=== PATIENT | male | born 1955 | race Caucasian/White ===

== ENCOUNTER 2017-11-09 09:09 | Inpatient (IN) | payer OTHER ==
[2017-11-09 10:33] VITALS: BMI 18.3
--- NOTE | 2017-11-09 11:41 | HP ---
CIWA Score - CIWA Score Nausea/Vomitin Muscle Tremors: 4-Moderate,w/Arms Extend Anxiety: 4-Mod. Anxious/Guarded Agitation: 1-Slight > Activity Paroxysmal Sweats: 1-Minimal Palms Moist Orientation: 1-Uncertain about Date Tacttile Disturbances: 1-Very Mild Itch/Numbness Auditory Disturbances: 1-Very Mild Visual Disturbances: 1-Very Mild Sensitivity Headache: 2-Mild CIWA-Ar Total Score: 18 Admission ROS BHS - HPI Chief Complaint: I need help, I shake too much, I need help to stop drinking Allergies/Adverse Reactions: Allergies Allergy/AdvReac Type Severity Reaction Status Date / Time No Known Allergies Allergy Verified 11/09/17 11:14 History of Present Illness: 62 yo gentleman here for detox from alcohol - states he went to [facility] but was sent here. Denies seizures, does have black outs. Has been in detox previously but does not remember when. Exam Limitations: Clinical Condition - Ebola screening Have you traveled outside of the country in the last 21 days: No Have you had contact with anyone from an Ebola affected area: No Have you been sick,other than usual withdrawal symptoms: No - Review of Systems Constitutional: Chills, Loss of Appetite, Malaise, Changes in sleep, Weakness, Unintentional Wgt. Loss EENT: reports: Blurred Vision Respiratory: reports: No Symptoms reported Cardiac: reports: No Symptoms Reported GI: reports: Nausea, Poor Appetite, Poor Fluid Intake, Indigestion, Abdominal cramping : reports: Frequency Musculoskeletal: reports: Joint Pain, Muscle Pain Integumentary: reports: Dryness Neuro: reports: Headache, Tremors Hematology: reports: No Symptoms Reported Psychiatric: reports: Judgement Intact, Mood/Affect Appropiate, Anxious Other Systems: Reviewed and Negative Patient History - Patient Medical History Hx Asthma: No Hx Chronic Obstructive Pulmonary Disease (COPD): No Hx Cancer: No Hx Cardiac Disorders: No Hx Congestive Heart Failure: No Hx Hypertension: No Hx Hypercholesterolemia: No Hx Pacemaker: No HX Cerebrovascular Accident: No Hx Seizures: No Hx Diabetes: No Hx Gastrointestinal Disorders: No Hx Liver Disease: No Hx Genitourinary Disorders: No Hx Sexually Transmitted Disorders: No Hx Renal Disease (ESRD): No Hx Thyroid Disease: No Hx Human Immunodeficiency Virus (HIV): No Hx Hepatitis C: No Hx Depression: Yes Hx Suicide Attempt: No Hx Schizophrenia: No - Patient Surgical History Past Surgical History: No Hx Neurologic Surgery: No Hx Cataract Extraction: No Hx Cardiac Surgery: No Hx Lung Surgery: No Hx Breast Surgery: No Hx Breast Biopsy: No Hx Abdominal Surgery: No Hx Appendectomy: No Hx Cholecystectomy: No Hx Genitourinary Surgery: No Hx Section: No Hx Orthopedic Surgery: No Anesthesia Reaction: No - PPD History Previous Implant?: Yes Documented Results: Negative w/o proof Implanted On Prior [facility] Admission?: No PPD to be Administered?: Yes - Reproductive History Patient is a Female of Child Bearing Age (11 -55 yrs old): No (male) - Smoking Cessation Smoking history: Never smoked Hx Chewing Tobacco Use: No Initiated information on smoking cessation: No - Substance & Tx. History Hx Alcohol Use: Yes Hx Substance Use: No Substance Use Type: Alcohol Hx Substance Use Treatment: Yes (detox, rehab) - Substances Abused Alcohol Route: Oral Frequency: Daily Amount used: 2 (6 packs 40 oz budweiser beer) Age of first use: 22 Date of Last Use: 11/09/17 Family Disease History - Family Disease History Family Disease History: Diabetes: Son (three - two in [place] - no contact), Other: Father (no contact), Mother ( - old age), Brother (4 in [place] - no contact), Sister (two - in [place] - 'they are ok'), Son Admission Physical Exam [facility] - Vital Signs Vital Signs: Vital Signs - 24 hr 11/09/17 10:32 Temperature 98.6 F Pulse Rate 77 Respiratory 18 Rate Blood Pressure 115/74 - Physical General Appearance: Yes: Nourished, Appropriately Dressed, Moderate Distress, Tremorous, Anxious HEENTM: Yes: Hearing grossly Normal, Normocephalic, Normal Voice, Pharynx Normal , Other (tongue coated) Respiratory: Yes: Normal Breath Sounds, No Respiratory Distress Neck: Yes: No masses,lesions,Nodules, Supple Breast: Yes: Breast Exam Deferred Cardiology: Yes: Regular Rhythm, Regular Rate Abdominal: Yes: Flat Genitourinary: Yes: Frequency Back: Yes: Decreased Range of Motion Musculoskeletal: Yes: full range of Motion, Gait Steady, Joint Stiffness Extremities: Yes: Normal Inspection, Non-Tender Neurological: Yes: Alert, Motor Strength 5/5, Normal Mood/Affect, Normal Response Integumentary: Yes: Normal Color, Dry, Warm Lymphatic: Yes: Within Normal Limits - Diagnostic (1) Alcohol dependence with uncomplicated withdrawal Current Visit: Yes Status: Acute (2) Weight decreased Current Visit: Yes Status: Acute (3) Dehydration Current Visit: Yes Status: Acute Cleared for Admission [facility] - Detox or Rehab [facility] Level of Care: Medically Managed Detox Regimen/Protocol: Librium [facility] Breath Alcohol Content Breath Alcohol Content: 0.232 Urine Drug Screen - Results Drug Screen Negative: No Urine Drug Screen Results: BZO-Benzodiazepines
[2017-11-09] MEDS ORDERED: P-EPHED 60MG/TRIPROLIDI 2.5MG TABLET PO PRN (11:44)
[2017-11-09] MEDS ORDERED: LOPERAMIDE HCL 2 MG CAPSULE PO PRN (11:44)
[2017-11-09] MEDS ORDERED: ACETAMINOPHEN 325 MG TABLET (FP) PO PRN (11:44)
[2017-11-09] MEDS ORDERED: MAG HYDROX/AL HYDROX/SIMETH 30 ML UNIT-DOSE CUP PO PRN (11:44)
[2017-11-09] MEDS ORDERED: guaiFENesin/D-METHORPHAN HB 10 ML UNIT-DOSE CUPS PO PRN (11:44)
[2017-11-09] MEDS ORDERED: MENTHOL/PHENOL 1 EACH UD MM PRN (11:44)
[2017-11-09] MEDS ORDERED: MAGNESIUM HYDROX 2400MG/30ML ORAL SUSPENSION 30 ML CUP PO PRN (11:44)
[2017-11-09] MEDS ORDERED: MAGNESIUM CITRATE 300 ML BOTTLE PO PRN (11:44)
[2017-11-09] MEDS ORDERED: IBUPROFEN 400 MG TABLET (FP) PO PRN (11:44)
[2017-11-09] MEDS ORDERED: chlordiazePOXIDE HCL 25 MG CAPSULE PO ONE (12:30)
[2017-11-09] MEDS: chlordiazePOXIDE HCL 25 MG CAPSULE PO SCH ×2 (17:51→22:25)
[2017-11-09] MEDS: chlordiazePOXIDE HCL 25 MG CAPSULE PO PRN (21:20)
[2017-11-09] MEDS ORDERED: MELATONIN 5 MG TABLETS PO PRN (22:00)
[2017-11-09] MEDS: THIAMINE HCL 100 MG TABLET (FP) PO SCH (22:25)
[2017-11-09 23:06] LABS: URINE APPEARANCE CLEAR; URINE BILIRUBIN NEGATIVE (<2.0 mg/dL); URINE COLOR AMBER; URINE GLUCOSE (UA) NEGATIVE (NEGATIVE); URINE KETONE TRACE (NEGATIVE); URINE LEUK ESTERASE NEGATIVE (NEGATIVE); URINE NITRITE NEGATIVE (NEGATIVE); URINE UROBILINOGEN 4.0 E.U/dl mg/dL (0.2-1.0)
[2017-11-09 23:08] LABS: URINE PROTEIN 1+ (NEGATIVE)
[2017-11-09 23:10] LABS: EPI CELLS RARE /HPF (FEW); URINE HYALINE CAST 3 /lpf; URINE MUCUS RARE
[2017-11-10] MEDS: chlordiazePOXIDE HCL 25 MG CAPSULE PO SCH ×4 (06:00→22:00)
--- NOTE | 2017-11-10 06:57 | CONSULT ---
[facility] Psychiatric Consult - Data Date of interview: 11/10/17 Admission source: [facility] [place] Identifying data: Mr Koch is a 62 years old single male, unemployed, homeless seeking detox treatment for alcohol Substance Abuse History: Reports history of alcohol use. Refer to addiction counselor's summary for further information Medical History: Unremarkable Psychiatric History: Denies history of previous psychiatric treatment. However, reorts feeling anxious Mental Status Exam - Mental Status Exam Alert and Oriented to: Time, Place, Person Cognitive Function: Fair Patient Appearance: Well Groomed Mood: Anxious Affect: Appropriate Patient Behavior: Cooperative Speech Pattern: Clear Voice Loudness: Normal Thought Process: Intact Hallucinations: Denies Suicidal Ideation: Denies Homicidal Ideation: Denies Insight/Judgement: Fair Sleep: Fair Appetite: Good Muscle strength/Tone: Normal Gait/Station: Normal Psychiatric Findings - Problem List ([place] 1, 2,3) (1) Alcohol-induced anxiety disorder Current Visit: Yes Status: Acute (2) Alcohol dependence with uncomplicated withdrawal Current Visit: Yes Status: Acute - Initial Treatment Plan Initial Treatment Plan: Continue inpatient detoxification
[2017-11-10 09:35] LABS: HEMOGLOBIN 13.5 GM/dL (11.7-16.9); MCH 31.4 pg (25.7-33.7); MCHC 33.8 g/dl (32.0-35.9); MEAN CELL VOLUME 92.9 fl (80-96); MEAN PLT VOLUME 8.9 fl (7.5-11.1); PLATELET COUNT 80 K/MM3 (134-434); RBC 4.31 M/mm3 (4.00-5.60); RDW 17.6 % (11.9-15.9); WHITE BLOOD COUNT 3.9 K/mm3 (4.0-10.0)
[2017-11-10 09:39] LABS: CHLORIDE 98 mmol/L (98-107); POTASSIUM 3.3 mmol/L (3.5-5.1); SODIUM 135 mmol/L (136-145)
[2017-11-10 09:46] LABS: ALBUMIN 3.2 g/dl (3.4-5.0); ALK PHOS 188 U/L (45-117); ANION GAP 9 (8-16); BILIRUBIN,TOTAL 2.7 mg/dL (0.2-1.0); BLOOD UREA NITROGEN 7 mg/dL (7-18); CALCIUM 8.2 mg/dL (8.5-10.1); CO2 28 mmol/L (21-32); CREATININE 0.8 mg/dL (0.7-1.3); GLUCOSE,RANDOM 113 mg/dL (74-106); SGOT/AST 387 U/L (15-37); SGPT/ALT 222 U/L (12-78); TOT PROT 7.2 g/dl (6.4-8.2)
--- NOTE | 2017-11-10 10:06 | EKG ---
Test Reason : Blood Pressure : / mmHG Vent. Rate : 068 BPM Atrial Rate : 068 BPM P-R Int : 146 ms QRS Dur : 136 ms QT Int : 452 ms P-R-T Axes : 052 034 052 degrees QTc Int : 480 ms NORMAL SINUS RHYTHM RIGHT BUNDLE BRANCH BLOCK ABNORMAL ECG NO PREVIOUS ECGS AVAILABLE Confirmed by CURTIS RODRIGUEZ, SABINA ([id number]) on 11/10/2017 10:06:09 AM Referred By: Pieter Conroy Confirmed By:SABINA ACEVEDO MD
[2017-11-10] MEDS: PRENATAL VITAMINS W/ FOLIC ACID TABLET (FP) PO SCH (10:41)
[2017-11-10] MEDS: chlordiazePOXIDE HCL 25 MG CAPSULE PO PRN ×2 (14:56→20:38)
--- NOTE | 2017-11-10 16:54 | PN ---
S CIWA - CIWA Score Nausea/Vomitin Muscle Tremors: 4-Moderate,w/Arms Extend Anxiety: 4-Mod. Anxious/Guarded Agitation: 3 Paroxysmal Sweats: 3 Orientation: 0-Oriented Tacttile Disturbances: 1-Very Mild Itch/Numbness Auditory Disturbances: 0-None Visual Disturbances: 0-None Headache: 1-Very Mild CIWA-Ar Total Score: 19 BHS Progress Note (SOAP) Subjective: Tremor, interrupted sleep Objective: 11/10/17 16:47 Last Vital Signs Temp Pulse Resp BP Pulse Ox 98.4 F 79 18 120/72 11/10/17 14:54 11/10/17 14:54 11/10/17 14:54 11/10/17 14:54 Laboratory Tests 11/09/17 11/10/17 11/10/17 22:20 07:45 07:45 WBC 3.9 L RBC 4.31 Hgb 13.5 Hct 40.0 MCV 92.9 MCH 31.4 MCHC 33.8 RDW 17.6 H Plt Count 80 L MPV 8.9 Sodium 135 L Potassium 3.3 L Chloride 98 Carbon Dioxide 28 Anion Gap 9 BUN 7 Creatinine 0.8 Creat Clearance w eGFR > 60 Random Glucose 113 H Calcium 8.2 L Total Bilirubin 2.7 H AST 387 H ALT 222 H Alkaline Phosphatase 188 H Total Protein 7.2 Albumin 3.2 L Urine Color Gail Urine Appearance Clear Urine pH 6.0 Ur Specific [place] 1.011 Urine Protein 1+ H Urine Glucose (UA) Negative Urine Ketones Trace H Urine Blood 1+ H Urine Nitrite Negative Urine Bilirubin Negative Urine Urobilinogen 4.0 e.u/dl Ur Leukocyte Esterase Negative Urine WBC (Auto) 2 Urine RBC (Auto) 2 Ur Epithelial Cells Rare Hyaline Casts 3 Urine Mucus Rare RPR Titer 11/10/17 07:45 WBC RBC Hgb Hct MCV MCH MCHC RDW Plt Count MPV Sodium Potassium Chloride Carbon Dioxide Anion Gap BUN Creatinine Creat Clearance w eGFR Random Glucose Calcium Total Bilirubin AST ALT Alkaline Phosphatase Total Protein Albumin Urine Color Urine Appearance Urine pH Ur Specific [place] Urine Protein Urine Glucose (UA) Urine Ketones Urine Blood Urine Nitrite Urine Bilirubin Urine Urobilinogen Ur Leukocyte Esterase Urine WBC (Auto) Urine RBC (Auto) Ur Epithelial Cells Hyaline Casts Urine Mucus RPR Titer Nonreactive Labs reviewed: K 3.3, elevated LFTs and abnormal UA EKG (repeated today) shows: NSR at 84 bpm, RBBB, QTc 491; previous EKG: RBBB, QTc 480 Assessment: 11/10/17 16:50 Withdrawal symptoms Noted with hypokalemia, elevated LFTs and abnormal UA Noted with abnormal EKG Plan: Continue detox Hypokalemia: K Dur 40 Meq PO x 1 dose, repeat serum K level in AM Elevated LFTs: repeat hepatic panel Abnormal UA: encouraged PO water hydration, repeat UA Abnormal EKG: asymptomatic, repeat EKG
[2017-11-10] MEDS ORDERED: POTASSIUM CHLORIDE TABS 20 MEQ TABLET.ER (FP) PO ONE (17:30)
[2017-11-10] MEDS: THIAMINE HCL 100 MG TABLET (FP) PO SCH (21:58)
[2017-11-11] MEDS: chlordiazePOXIDE HCL 25 MG CAPSULE PO SCH ×2 (06:26→10:19)
--- NOTE | 2017-11-11 08:51 | EKG ---
Test Reason : Blood Pressure : / mmHG Vent. Rate : 084 BPM Atrial Rate : 084 BPM P-R Int : 136 ms QRS Dur : 128 ms QT Int : 416 ms P-R-T Axes : 027 040 043 degrees QTc Int : 491 ms NORMAL SINUS RHYTHM RIGHT BUNDLE BRANCH BLOCK ABNORMAL ECG WHEN COMPARED WITH ECG OF 09-NOV-2017 13:58, NO SIGNIFICANT CHANGE WAS FOUND BASELINE ARTIFACT Confirmed by ANGIE RODRIGUEZ, JUVENAL ([id number]) on 11/11/2017 8:51:22 AM Referred By: Pieter Conroy Confirmed By:JUVENAL ADAMS MD
[2017-11-11] MEDS: PRENATAL VITAMINS W/ FOLIC ACID TABLET (FP) PO SCH (10:19)
[2017-11-11 10:39] LABS: ALK PHOS 187 U/L (45-117); ANION GAP 6 (8-16); BILIRUBIN,DIRECT 1.7 mg/dL (0.0-0.2); BILIRUBIN,TOTAL 2.6 mg/dL (0.2-1.0); BLOOD UREA NITROGEN 9 mg/dL (7-18); CALCIUM 8.8 mg/dL (8.5-10.1); CHLORIDE 101 mmol/L (98-107); CO2 29 mmol/L (21-32); CREATININE 0.8 mg/dL (0.7-1.3); GLUCOSE,RANDOM 110 mg/dL (74-106); POTASSIUM 3.9 mmol/L (3.5-5.1); SGOT/AST 266 U/L (15-37); SGPT/ALT 209 U/L (12-78); SODIUM 136 mmol/L (136-145); TOT PROT 7.1 g/dl (6.4-8.2)
[2017-11-11] MEDS: chlordiazePOXIDE HCL 25 MG CAPSULE PO PRN (15:14)
--- NOTE | 2017-11-11 17:38 | PN ---
S CIWA - CIWA Score Nausea/Vomitin Muscle Tremors: 4-Moderate,w/Arms Extend Anxiety: 3 Agitation: 4-Moderately Restless Paroxysmal Sweats: 3 Orientation: 0-Oriented Tacttile Disturbances: 0-None Auditory Disturbances: 0-None Visual Disturbances: 0-None Headache: 0-None Present CIWA-Ar Total Score: 16 BHS Progress Note (SOAP) Subjective: sleep disturbance sweats shakes Objective: 11/11/17 17:36 A & O x3 Ambulating within unit Vital Signs Temperature 97.6 F 11/11/17 14:13 Pulse Rate 71 11/11/17 14:13 Respiratory Rate 18 11/11/17 14:13 Blood Pressure 110/68 11/11/17 14:13 O2 Sat by Pulse Oximetry (%) Assessment: 11/11/17 17:36 withdrawal sx Repeat EKG reviewed - same as past EKG Pt denies any complaints Plan: continue with detox plan increased hydration for abnormal urinalysis
[2017-11-11] MEDS: chlordiazePOXIDE 5 MG CAPSULE PO SCH ×2 (18:34→23:02)
[2017-11-11] MEDS: THIAMINE HCL 100 MG TABLET (FP) PO SCH (23:02)
[2017-11-12] MEDS: chlordiazePOXIDE HCL 25 MG CAPSULE PO PRN (03:01)
[2017-11-12] MEDS: chlordiazePOXIDE 5 MG CAPSULE PO SCH ×2 (05:09→10:14)
[2017-11-12 10:03] LABS: URINE APPEARANCE CLEAR; URINE BILIRUBIN NEGATIVE (<2.0 mg/dL); URINE COLOR AMBER; URINE GLUCOSE (UA) NEGATIVE (NEGATIVE); URINE KETONE NEGATIVE (NEGATIVE); URINE LEUK ESTERASE NEGATIVE (NEGATIVE); URINE NITRITE NEGATIVE (NEGATIVE); URINE PROTEIN NEGATIVE (NEGATIVE); URINE UROBILINOGEN 4.0 E.U/dl mg/dL (0.2-1.0)
[2017-11-12] MEDS: PRENATAL VITAMINS W/ FOLIC ACID TABLET (FP) PO SCH (10:14)
--- NOTE | 2017-11-12 13:29 | EKG ---
Test Reason : Blood Pressure : / mmHG Vent. Rate : 075 BPM Atrial Rate : 075 BPM P-R Int : 132 ms QRS Dur : 122 ms QT Int : 426 ms P-R-T Axes : 041 054 047 degrees QTc Int : 475 ms NORMAL SINUS RHYTHM RIGHT BUNDLE BRANCH BLOCK ABNORMAL ECG WHEN COMPARED WITH ECG OF 10-NOV-2017 10:39, NO SIGNIFICANT CHANGE WAS FOUND Confirmed by MD Law, Mykel ([id number]) on 11/12/2017 1:29:09 PM Referred By: Pieter Conroy Confirmed By:Mykel Foy MD
[2017-11-12] MEDS: chlordiazePOXIDE HCL 10 MG CAPSULE PO SCH ×2 (16:55→22:21)
--- NOTE | 2017-11-12 21:25 | PN ---
S Progress Note (SOAP) Subjective: Diarrhea, Poor Appetite, Tremors, Fatigue, Vomiting. Objective: PATIENT A & O X 2 (UNCERTAIN ABOUT CURRENT DAY / DATE). PATIENT OBSERVED AMBULATING ON UNIT. NO ACUTE DISTRESS. 11/12/17 21:23 Vital Signs Temperature 97.1 F L 11/12/17 17:31 Pulse Rate 73 11/12/17 17:31 Respiratory Rate 16 11/12/17 17:31 Blood Pressure 88/53 11/12/17 17:31 O2 Sat by Pulse Oximetry (%) Laboratory Tests 11/09/17 11/10/17 11/10/17 22:20 07:45 07:45 WBC 3.9 L RBC 4.31 Hgb 13.5 Hct 40.0 MCV 92.9 MCH 31.4 MCHC 33.8 RDW 17.6 H Plt Count 80 L MPV 8.9 Sodium 135 L Potassium 3.3 L Chloride 98 Carbon Dioxide 28 Anion Gap 9 BUN 7 Creatinine 0.8 Creat Clearance w eGFR > 60 Random Glucose 113 H Calcium 8.2 L Total Bilirubin 2.7 H Direct Bilirubin AST 387 H ALT 222 H Alkaline Phosphatase 188 H Total Protein 7.2 Albumin 3.2 L Urine Color Gail Urine Appearance Clear Urine pH 6.0 Ur Specific [place] 1.011 Urine Protein 1+ H Urine Glucose (UA) Negative Urine Ketones Trace H Urine Blood 1+ H Urine Nitrite Negative Urine Bilirubin Negative Urine Urobilinogen 4.0 e.u/dl Ur Leukocyte Esterase Negative Urine WBC (Auto) 2 Urine RBC (Auto) 2 Ur Epithelial Cells Rare Hyaline Casts 3 Urine Mucus Rare RPR Titer 11/10/17 11/11/17 11/12/17 07:45 07:55 08:15 WBC RBC Hgb Hct MCV MCH MCHC RDW Plt Count MPV Sodium 136 Potassium 3.9 Chloride 101 Carbon Dioxide 29 Anion Gap 6 L BUN 9 D Creatinine 0.8 Creat Clearance w eGFR Random Glucose 110 H Calcium 8.8 Total Bilirubin 2.6 H Direct Bilirubin 1.7 H AST 266 H D ALT 209 H Alkaline Phosphatase 187 H Total Protein 7.1 Albumin 3.0 L Urine Color Gail Urine Appearance Clear Urine pH 8.0 D Ur Specific [place] 1.015 Urine Protein Negative Urine Glucose (UA) Negative Urine Ketones Negative Urine Blood Negative Urine Nitrite Negative Urine Bilirubin Negative Urine Urobilinogen 4.0 e.u/dl Ur Leukocyte Esterase Negative Urine WBC (Auto) Urine RBC (Auto) Ur Epithelial Cells Hyaline Casts Urine Mucus RPR Titer Nonreactive LABS NOTED. Assessment: 11/12/17 21:23 WITHDRAWAL SYMPTOMS. Plan: CONTINUE DETOX. INCREASE DAILY PO FLUID INTAKE. PRN IMMODIUM FOR DIARRHEA. PATIENT SCHEDULED FOR D/C TOMORROW.
[2017-11-12] MEDS: THIAMINE HCL 100 MG TABLET (FP) PO SCH (22:21)
[2017-11-13] MEDS: chlordiazePOXIDE HCL 10 MG CAPSULE PO SCH ×2 (05:37→10:06)
[2017-11-13 09:18] VITALS: BP 108/75; PULSE 87; TEMP 96.7
[2017-11-13] MEDS: PRENATAL VITAMINS W/ FOLIC ACID TABLET (FP) PO SCH (10:06)
--- NOTE | 2017-11-13 12:51 | PN ---
BHS Progress Note (SOAP) Subjective: Patient reports lingering tremors. Patient denies any other current withdrawal symptoms. Objective: PATIENT A & O X 3, OBSERVED AMBULATING ON UNIT. NO ACUTE DISTRESS. 11/13/17 12:50 Vital Signs Temperature 96.7 F L 11/13/17 09:16 Pulse Rate 87 11/13/17 09:16 Respiratory Rate 18 11/13/17 09:16 Blood Pressure 108/75 11/13/17 09:16 O2 Sat by Pulse Oximetry (%) Laboratory Tests 11/09/17 11/10/17 11/10/17 22:20 07:45 07:45 WBC 3.9 L RBC 4.31 Hgb 13.5 Hct 40.0 MCV 92.9 MCH 31.4 MCHC 33.8 RDW 17.6 H Plt Count 80 L MPV 8.9 Sodium 135 L Potassium 3.3 L Chloride 98 Carbon Dioxide 28 Anion Gap 9 BUN 7 Creatinine 0.8 Creat Clearance w eGFR > 60 Random Glucose 113 H Calcium 8.2 L Total Bilirubin 2.7 H Direct Bilirubin AST 387 H ALT 222 H Alkaline Phosphatase 188 H Total Protein 7.2 Albumin 3.2 L Urine Color Gail Urine Appearance Clear Urine pH 6.0 Ur Specific [place] 1.011 Urine Protein 1+ H Urine Glucose (UA) Negative Urine Ketones Trace H Urine Blood 1+ H Urine Nitrite Negative Urine Bilirubin Negative Urine Urobilinogen 4.0 e.u/dl Ur Leukocyte Esterase Negative Urine WBC (Auto) 2 Urine RBC (Auto) 2 Ur Epithelial Cells Rare Hyaline Casts 3 Urine Mucus Rare RPR Titer 11/10/17 11/11/17 11/12/17 07:45 07:55 08:15 WBC RBC Hgb Hct MCV MCH MCHC RDW Plt Count MPV Sodium 136 Potassium 3.9 Chloride 101 Carbon Dioxide 29 Anion Gap 6 L BUN 9 D Creatinine 0.8 Creat Clearance w eGFR Random Glucose 110 H Calcium 8.8 Total Bilirubin 2.6 H Direct Bilirubin 1.7 H AST 266 H D ALT 209 H Alkaline Phosphatase 187 H Total Protein 7.1 Albumin 3.0 L Urine Color Gail Urine Appearance Clear Urine pH 8.0 D Ur Specific [place] 1.015 Urine Protein Negative Urine Glucose (UA) Negative Urine Ketones Negative Urine Blood Negative Urine Nitrite Negative Urine Bilirubin Negative Urine Urobilinogen 4.0 e.u/dl Ur Leukocyte Esterase Negative Urine WBC (Auto) Urine RBC (Auto) Ur Epithelial Cells Hyaline Casts Urine Mucus RPR Titer Nonreactive LABS NOTED. Assessment: 11/13/17 12:50 COMPLETION OF DETOX REGIMEN. Plan: PATIENT SCHEDULED FOR DISCHARGE FROM DETOX UNIT TODAY.
--- NOTE | 2017-11-13 12:55 | DS ---
[facility] Summary Admission Date: 11/09/17 Discharge Date: 11/13/17 - History Present History: Alcohol Dependence Additional Comments: PATIENT GOING TO [facility] ([place]) FOR AFTERCARE. PATIENT WAS DISCHARGED FROM DETOX UNIT TO BE TAKEN OVER TO REHAB UNIT IN STABLE MEDICAL CONDITION. Pertinent Past History: Depression, Anxiety, Weight Loss, Hypokalemia, Dehydration. - Physical Exam Results Vital Signs: Vital Signs Temperature 96.7 F L 11/13/17 09:16 Pulse Rate 87 11/13/17 09:16 Respiratory Rate 18 11/13/17 09:16 Blood Pressure 108/75 11/13/17 09:16 O2 Sat by Pulse Oximetry (%) Pertinent Admission Physical Exam Findings: WITHDRAWAL SYMPTOMS. Laboratory Tests 11/09/17 11/10/17 11/10/17 22:20 07:45 07:45 WBC 3.9 L RBC 4.31 Hgb 13.5 Hct 40.0 MCV 92.9 MCH 31.4 MCHC 33.8 RDW 17.6 H Plt Count 80 L MPV 8.9 Sodium 135 L Potassium 3.3 L Chloride 98 Carbon Dioxide 28 Anion Gap 9 BUN 7 Creatinine 0.8 Creat Clearance w eGFR > 60 Random Glucose 113 H Calcium 8.2 L Total Bilirubin 2.7 H Direct Bilirubin AST 387 H ALT 222 H Alkaline Phosphatase 188 H Total Protein 7.2 Albumin 3.2 L Urine Color Gail Urine Appearance Clear Urine pH 6.0 Ur Specific [place] 1.011 Urine Protein 1+ H Urine Glucose (UA) Negative Urine Ketones Trace H Urine Blood 1+ H Urine Nitrite Negative Urine Bilirubin Negative Urine Urobilinogen 4.0 e.u/dl Ur Leukocyte Esterase Negative Urine WBC (Auto) 2 Urine RBC (Auto) 2 Ur Epithelial Cells Rare Hyaline Casts 3 Urine Mucus Rare RPR Titer 11/10/17 11/11/17 11/12/17 07:45 07:55 08:15 WBC RBC Hgb Hct MCV MCH MCHC RDW Plt Count MPV Sodium 136 Potassium 3.9 Chloride 101 Carbon Dioxide 29 Anion Gap 6 L BUN 9 D Creatinine 0.8 Creat Clearance w eGFR Random Glucose 110 H Calcium 8.8 Total Bilirubin 2.6 H Direct Bilirubin 1.7 H AST 266 H D ALT 209 H Alkaline Phosphatase 187 H Total Protein 7.1 Albumin 3.0 L Urine Color Gail Urine Appearance Clear Urine pH 8.0 D Ur Specific [place] 1.015 Urine Protein Negative Urine Glucose (UA) Negative Urine Ketones Negative Urine Blood Negative Urine Nitrite Negative Urine Bilirubin Negative Urine Urobilinogen 4.0 e.u/dl Ur Leukocyte Esterase Negative Urine WBC (Auto) Urine RBC (Auto) Ur Epithelial Cells Hyaline Casts Urine Mucus RPR Titer Nonreactive LABS NOTED. - Treatment Hospital Course: Detox Protocol Followed, Detoxed Safely, Responded well, Discharged Condition Good, Rehab Referral Accepted Patient has Accepted a Rehab Referral to: [facility] ([place], [place] . - Medication Discharge Medications: Ambulatory Orders NK [No Known Home Medication] 11/09/17 - Diagnosis (1) Alcohol dependence with uncomplicated withdrawal Status: Acute (2) Dehydration Status: Acute (3) Weight decreased Status: Acute (4) Alcohol-induced anxiety disorder Status: Acute - AMA Did Patient Leave Against Medical Advice: No
== END 2017-11-13 11:45 | disposition other institution (70) | DRG 775 ==
LOC: YASAS 09:09 → Y3N 12:02
PROVIDERS: ADMIT Internal Medicine; ATTEND Internal Medicine
PROC: HZ2ZZZZ Detoxification Services for Substance Abuse Treatment (ICD-10-PCS; principal; 2017-11-09)
DX: F10.230 Alcohol dependence with withdrawal, uncomplicated (principal); F10.280 Alcohol dependence with alcohol-induced anxiety disorder; F41.9 Anxiety disorder, unspecified; F32.9 Major depressive disorder, single episode, unspecified; E86.0 Dehydration; E87.6 Hypokalemia; R82.90 Unspecified abnormal findings in urine; R74.8 Abnormal levels of other serum enzymes; R94.31 Abnormal electrocardiogram [ECG] [EKG]; R63.4 Abnormal weight loss; Z68.21 Body mass index [BMI] 21.0-21.9, adult
CPT/HCPCS: 36415; 80048; 80053; 80076; 81003; 81015; 85027; 86593; 93005; 93010